=== PATIENT | female | born 1945 | race Caucasian/White ===

== ENCOUNTER 2022-02-28 08:11 | Day surgery (SDC) | payer BC ==
[2022-02-21 11:05] VITALS: BMI 29.6
[~2022-02-28 08:11] MED LIST: VANCOMYCIN 1,000 MG VIAL (RESTRICTED TO ID ONLY) IVPB ONE
[2022-02-28] MEDS ORDERED: CELECOXIB 200 MG CAPSULE PO ONE ×2 (09:51→10:00)
[2022-02-28] MEDS ORDERED: TRANEXAMIC ACID 1000 MG/10 ML VIAL IVPUSH ONE (10:00)
[2022-02-28] MEDS ORDERED: CEFAZOLIN 2 GM in DEXTROSE 5%-WATER - 50 ML IVPB ONE (10:00)
[2022-02-28] MEDS ORDERED: ceFAZolin SODIUM 1 GM VIAL ONE ×2 (10:27→19:09)
[2022-02-28] MEDS ORDERED: VANCOMYCIN 1,000 MG VIAL (RESTRICTED TO ID ONLY) ONE (10:27)
[2022-02-28] MEDS ORDERED: MIDAZOLAM HCL 2 MG/2 ML SINGLE DOSE VIAL ONE (10:52)
[2022-02-28] MEDS ORDERED: ROPIVACAINE HCL 0.5% 30ML VIAL ONE (10:53)
[2022-02-28] MEDS ORDERED: VANCOMYCIN 1,000 MG VIAL (RESTRICTED TO ID ONLY) IVPB ONE (12:50)
[2022-02-28] MEDS ORDERED: ONDANSETRON 4 MG/2 ML VIAL IVPUSH PRN ×2 (13:18→13:23)
[2022-02-28] MEDS ORDERED: MAG HYDROX/AL HYDROX/SIMETH 30 ML UNIT-DOSE CUP PO PRN (13:18)
[2022-02-28] MEDS ORDERED: LACTATED RINGERS SOLUTION 1,000 ML IV SCH (13:30)
[2022-02-28] MEDS ORDERED: oxyCODONE HCL 5 MG TABLET PO PRN (13:36)
[2022-02-28] MEDS ORDERED: ACETAMINOPHEN 1000 MG/100 ML BAG IVPB ONE (14:00)
[2022-02-28] MEDS: INSULIN SLIDING SCALE (NOVOLOG) 1 VIAL SQ SCH ×2 (19:07→22:44)
[2022-02-28] MEDS ORDERED: DEXTROSE 5%-WATER - 50 ML IVPB ONE (19:09)
[2022-02-28] MEDS: CEFAZOLIN 2 GM in DEXTROSE 5%-WATER - 50 ML IVPB SCH (19:13)
[2022-02-28] MEDS: oxyCODONE HCL 5 MG TABLET PO PRN (20:05)
[2022-02-28] MEDS: ATORVASTATIN CA 20 MG TABLET (FP) PO SCH (22:32)
[2022-02-28] MEDS: SENNOSIDES/DOCUSATE COMBO (SENNA PLUS) TABLET (UD) PO SCH (22:32)
[2022-02-28] MEDS ORDERED: SODIUM CHLORIDE 500 ML IV STA (22:47)
[2022-03-01] MEDS: CEFAZOLIN 2 GM in DEXTROSE 5%-WATER - 50 ML IVPB SCH (02:13)
[2022-03-01] MEDS: oxyCODONE HCL 5 MG TABLET PO PRN (05:14)
[2022-03-01] MEDS: LEVOTHYROXINE NA 100 MCG TABLET (FP) PO SCH (06:02)
[2022-03-01] MEDS: INSULIN SLIDING SCALE (NOVOLOG) 1 VIAL SQ SCH ×4 (06:02→23:23)
[2022-03-01 08:08] LABS: INR 1.04 (0.83-1.09)
[2022-03-01 08:16] LABS: ALBUMIN 2.8 g/dl (3.4-5.0); BILIRUBIN,TOTAL 0.5 mg/dl (0.2-1); CALCIUM 8.8 mg/dl (8.5-10); CREATININE 1.3 mg/dl (0.55-1.3); TOT PROT 5.9 g/dl (6.4-8.2)
[2022-03-01 08:19] LABS: HEMATOCRIT 22.7 % (32.4-45.2); HEMOGLOBIN 7.2 G/dL (10.7-15.3); MCH 25.4 pg (25.7-33.7); MCHC 31.8 g/dl (32.0-36.0); MEAN PLT VOLUME 7.6 fl (7.5-11.1); PLATELET COUNT 461.9 10^3/uL (134-434); RBC 2.84 10^6/uL (3.60-5.2)
[2022-03-01] MEDS ORDERED: SODIUM POLYSTYRENE SULFONATE 15 GM/60 ML BOTTLE PO ONE (08:45)
[2022-03-01] MEDS: metFORMIN HCL 500 MG TABLET (FP) PO SCH (08:45)
[2022-03-01] MEDS: amLODIPine BESYLATE 5 MG TABLET (FP) PO SCH (09:14)
[2022-03-01] MEDS: MULTIVITAMINS (DAILY MVI) TABLET (FP) PO SCH (09:15)
[2022-03-01] MEDS: CLOPIDOGREL BISULFATE 75 MG TABLET (FP) PO SCH (09:15)
[2022-03-01] MEDS: PANTOPRAZOLE 40 MG TABLET PO SCH (09:15)
[2022-03-01] MEDS: SENNOSIDES/DOCUSATE COMBO (SENNA PLUS) TABLET (UD) PO SCH ×2 (09:15→23:23)
[2022-03-01] MEDS: ATENOLOL 25 MG TABLET (FP) PO SCH (09:15)
[2022-03-01] MEDS ORDERED: PATIENT'S OWN MEDICATION (NON-FORMULARY) (Linaclotide [Linzess] 145 MCG Capsule) PO SCH (10:00)
[2022-03-01] MEDS ORDERED: VALSARTAN 160 MG TABLET PO SCH (10:00)
[2022-03-01] MEDS ORDERED: PATIENT'S OWN MEDICATION (NON-FORMULARY) (Metformin Hcl [Metformin Er Osmotic] 500 MG Tab. PO SCH (10:00)
[2022-03-01] MEDS ORDERED: SODIUM CHLORIDE 0.45% 1,000 ML IV SCH (16:00)
[2022-03-01 17:20] LABS: CALCIUM 8.5 mg/dl (8.5-10); CREATININE 1.2 mg/dl (0.55-1.3)
[2022-03-01 20:24] LABS: IRON SERUM 10 ug/dL (50-175); TOTAL IRON BINDING CAPACITY 354 ug/dL (250-450)
[2022-03-01 21:46] LABS: HEMATOCRIT 20.4 % (32.4-45.2); MCH 25.8 pg (25.7-33.7); MCHC 32.4 g/dl (32.0-36.0); MEAN CELL VOLUME 79.6 fl (80-96); MEAN PLT VOLUME 7.5 fl (7.5-11.1); PLATELET COUNT 413.3 10^3/uL (134-434); RBC 2.56 10^6/uL (3.60-5.2); WHITE BLOOD COUNT 13.4 10^3/uL (4.0-10.8)
[2022-03-01 21:47] LABS: HEMOGLOBIN 6.6 G/dL (10.7-15.3)
[2022-03-01] MEDS ORDERED: ACETAMINOPHEN 1000 MG/100 ML BAG IVPB ONE (22:32)
[2022-03-01] MEDS: ATORVASTATIN CA 20 MG TABLET (FP) PO SCH (23:23)
[2022-03-02 00:53] LABS: URINE APPEARANCE CLEAR; URINE BILIRUBIN NEGATIVE (NEGATIVE); URINE COLOR YELLOW; URINE GLUCOSE (UA) NEGATIVE (NEGATIVE); URINE KETONE NEGATIVE (NEGATIVE); URINE LEUK ESTERASE NEGATIVE (NEGATIVE); URINE NITRITE NEGATIVE (NEGATIVE); URINE PROTEIN NEGATIVE (NEGATIVE); URINE UROBILINOGEN 0.2 mg/dL (0.2-1.0)
[2022-03-02] MEDS: LEVOTHYROXINE NA 100 MCG TABLET (FP) PO SCH (06:48)
[2022-03-02] MEDS: INSULIN SLIDING SCALE (NOVOLOG) 1 VIAL SQ SCH ×4 (06:48→22:00)
[2022-03-02] MEDS: ATENOLOL 25 MG TABLET (FP) PO SCH (10:08)
[2022-03-02] MEDS: PANTOPRAZOLE 40 MG TABLET PO SCH (10:08)
[2022-03-02] MEDS: CLOPIDOGREL BISULFATE 75 MG TABLET (FP) PO SCH (10:09)
[2022-03-02] MEDS: amLODIPine BESYLATE 5 MG TABLET (FP) PO SCH (10:09)
[2022-03-02] MEDS: FUROSEMIDE 20 MG TABLET (FP) PO SCH (10:09)
[2022-03-02] MEDS: SENNOSIDES/DOCUSATE COMBO (SENNA PLUS) TABLET (UD) PO SCH ×2 (10:09→22:27)
[2022-03-02] MEDS: MULTIVITAMINS (DAILY MVI) TABLET (FP) PO SCH (10:11)
[2022-03-02] MEDS: metFORMIN HCL 500 MG TABLET (FP) PO SCH (10:20)
[2022-03-02 14:48] LABS: HEMATOCRIT 29.3 % (32.4-45.2); MCH 27.9 pg (25.7-33.7); MCHC 34.1 g/dl (32.0-36.0); MEAN CELL VOLUME 81.9 fl (80-96); MEAN PLT VOLUME 7.6 fl (7.5-11.1); PLATELET COUNT 378.5 10^3/uL (134-434); RBC 3.58 10^6/uL (3.60-5.2); RDW 18.1 % (11.6-15.6)
[2022-03-02 14:51] LABS: CALCIUM 8.6 mg/dl (8.5-10)
[2022-03-02] MEDS: ATORVASTATIN CA 20 MG TABLET (FP) PO SCH (22:27)
[2022-03-03] MEDS: ACETAMINOPHEN 325 MG TABLET (FP) PO PRN ×2 (00:42→18:41)
[2022-03-03] MEDS: LEVOTHYROXINE NA 100 MCG TABLET (FP) PO SCH (06:54)
[2022-03-03] MEDS: oxyCODONE HCL 5 MG TABLET PO PRN (06:54)
[2022-03-03] MEDS: INSULIN SLIDING SCALE (NOVOLOG) 1 VIAL SQ SCH ×3 (06:54→17:18)
[2022-03-03] MEDS: metFORMIN HCL 500 MG TABLET (FP) PO SCH (07:22)
[2022-03-03] MEDS: CLOPIDOGREL BISULFATE 75 MG TABLET (FP) PO SCH (10:17)
[2022-03-03] MEDS: SENNOSIDES/DOCUSATE COMBO (SENNA PLUS) TABLET (UD) PO SCH ×2 (10:17→21:47)
[2022-03-03] MEDS: FUROSEMIDE 20 MG TABLET (FP) PO SCH (10:17)
[2022-03-03] MEDS: PANTOPRAZOLE 40 MG TABLET PO SCH (10:17)
[2022-03-03] MEDS: MULTIVITAMINS (DAILY MVI) TABLET (FP) PO SCH (10:17)
[2022-03-03] MEDS: amLODIPine BESYLATE 5 MG TABLET (FP) PO SCH (10:18)
[2022-03-03] MEDS: ATENOLOL 25 MG TABLET (FP) PO SCH (10:18)
[2022-03-03 13:05] LABS: ALBUMIN 2.8 g/dl (3.4-5.0); BILIRUBIN,TOTAL 0.7 mg/dl (0.2-1); CALCIUM 8.8 mg/dl (8.5-10); CALCIUM 8.9 mg/dl (8.5-10); CREATININE 0.9 mg/dl (0.55-1.3); TOT PROT 6.5 g/dl (6.4-8.2)
[2022-03-03 13:16] LABS: HEMATOCRIT 34.8 % (32.4-45.2); HEMOGLOBIN 11.2 G/dL (10.7-15.3); MCH 26.4 pg (25.7-33.7); MCHC 32.3 g/dl (32.0-36.0); MEAN CELL VOLUME 81.9 fl (80-96); MEAN PLT VOLUME 7.9 fl (7.5-11.1); PLATELET COUNT 483.3 10^3/uL (134-434); RBC 4.25 10^6/uL (3.60-5.2); RDW 18.2 % (11.6-15.6); WHITE BLOOD COUNT 15.9 10^3/uL (4.0-10.8)
[2022-03-03 14:27] LABS: ADD RBC MORPHOLOGY YES; PLATELET ESTIMATE SLT INCREASE
[2022-03-03 14:28] LABS: ANISOCYTOSIS 2+
[2022-03-03] MEDS: ATORVASTATIN CA 20 MG TABLET (FP) PO SCH (21:47)
[2022-03-04] MEDS: LEVOTHYROXINE NA 100 MCG TABLET (FP) PO SCH (06:15)
[2022-03-04] MEDS: metFORMIN HCL 500 MG TABLET (FP) PO SCH (06:15)
[2022-03-04] MEDS: INSULIN SLIDING SCALE (NOVOLOG) 1 VIAL SQ SCH ×4 (06:35→21:32)
[2022-03-04 08:16] LABS: HEMATOCRIT 29.7 % (32.4-45.2); HEMOGLOBIN 9.8 G/dL (10.7-15.3); MCH 26.7 pg (25.7-33.7); MCHC 32.9 g/dl (32.0-36.0); MEAN CELL VOLUME 81.4 fl (80-96); MEAN PLT VOLUME 7.7 fl (7.5-11.1); PLATELET COUNT 437.8 10^3/uL (134-434); RBC 3.65 10^6/uL (3.60-5.2); RDW 18.3 % (11.6-15.6); WHITE BLOOD COUNT 14.2 10^3/uL (4.0-10.8)
[2022-03-04] MEDS: SENNOSIDES/DOCUSATE COMBO (SENNA PLUS) TABLET (UD) PO SCH ×2 (09:31→21:23)
[2022-03-04] MEDS: MULTIVITAMINS (DAILY MVI) TABLET (FP) PO SCH (09:31)
[2022-03-04] MEDS: CLOPIDOGREL BISULFATE 75 MG TABLET (FP) PO SCH (09:32)
[2022-03-04] MEDS: PANTOPRAZOLE 40 MG TABLET PO SCH (09:32)
[2022-03-04] MEDS: FUROSEMIDE 20 MG TABLET (FP) PO SCH (09:32)
[2022-03-04] MEDS: ATENOLOL 25 MG TABLET (FP) PO SCH (09:35)
[2022-03-04] MEDS: amLODIPine BESYLATE 5 MG TABLET (FP) PO SCH (09:35)
[2022-03-04] MEDS: ACETAMINOPHEN 325 MG TABLET (FP) PO PRN (10:02)
[2022-03-04 12:50] LABS: ANISOCYTOSIS 1+
[2022-03-04 12:51] LABS: PLATELET ESTIMATE SIGNIFICANT INCREASE
[2022-03-04] MEDS: ATORVASTATIN CA 20 MG TABLET (FP) PO SCH (21:23)
[2022-03-05] MEDS: ACETAMINOPHEN 325 MG TABLET (FP) PO PRN ×2 (05:55→16:44)
[2022-03-05] MEDS: metFORMIN HCL 500 MG TABLET (FP) PO SCH (06:01)
[2022-03-05] MEDS: INSULIN SLIDING SCALE (NOVOLOG) 1 VIAL SQ SCH ×4 (07:00→21:32)
[2022-03-05] MEDS: LEVOTHYROXINE NA 100 MCG TABLET (FP) PO SCH (08:51)
[2022-03-05] MEDS: FUROSEMIDE 20 MG TABLET (FP) PO SCH (09:01)
[2022-03-05] MEDS: CLOPIDOGREL BISULFATE 75 MG TABLET (FP) PO SCH (09:01)
[2022-03-05] MEDS: MULTIVITAMINS (DAILY MVI) TABLET (FP) PO SCH (09:01)
[2022-03-05] MEDS: SENNOSIDES/DOCUSATE COMBO (SENNA PLUS) TABLET (UD) PO SCH ×2 (09:01→21:22)
[2022-03-05] MEDS: PANTOPRAZOLE 40 MG TABLET PO SCH (09:01)
[2022-03-05] MEDS: ATENOLOL 25 MG TABLET (FP) PO SCH (09:02)
[2022-03-05] MEDS: VALSARTAN 160 MG TABLET PO SCH (09:03)
[2022-03-05 09:22] LABS: HEMATOCRIT 28.5 % (32.4-45.2); HEMOGLOBIN 9.5 G/dL (10.7-15.3); MCH 27.6 pg (25.7-33.7); MCHC 33.3 g/dl (32.0-36.0); MEAN PLT VOLUME 7.8 fl (7.5-11.1); PLATELET COUNT 471.7 10^3/uL (134-434); RBC 3.43 10^6/uL (3.60-5.2); RDW 18.8 % (11.6-15.6); WHITE BLOOD COUNT 10.9 10^3/uL (4.0-10.8)
[2022-03-05] MEDS: amLODIPine BESYLATE 5 MG TABLET (FP) PO SCH (12:00)
[2022-03-05 14:21] LABS: PLATELET ESTIMATE SLT INCREASE
[2022-03-05] MEDS: ATORVASTATIN CA 20 MG TABLET (FP) PO SCH (21:23)
[2022-03-06] MEDS: metFORMIN HCL 500 MG TABLET (FP) PO SCH (06:30)
[2022-03-06] MEDS: LEVOTHYROXINE NA 100 MCG TABLET (FP) PO SCH (06:30)
[2022-03-06] MEDS: INSULIN SLIDING SCALE (NOVOLOG) 1 VIAL SQ SCH ×5 (06:35→21:33)
[2022-03-06] MEDS: ACETAMINOPHEN 325 MG TABLET (FP) PO PRN ×2 (06:54→17:38)
[2022-03-06] MEDS: VALSARTAN 160 MG TABLET PO SCH (09:33)
[2022-03-06] MEDS: FUROSEMIDE 20 MG TABLET (FP) PO SCH (09:33)
[2022-03-06] MEDS: PANTOPRAZOLE 40 MG TABLET PO SCH (09:33)
[2022-03-06] MEDS: ATENOLOL 25 MG TABLET (FP) PO SCH (09:33)
[2022-03-06] MEDS: CLOPIDOGREL BISULFATE 75 MG TABLET (FP) PO SCH (09:33)
[2022-03-06] MEDS: SENNOSIDES/DOCUSATE COMBO (SENNA PLUS) TABLET (UD) PO SCH ×2 (09:33→21:32)
[2022-03-06] MEDS: MULTIVITAMINS (DAILY MVI) TABLET (FP) PO SCH (09:33)
[2022-03-06] MEDS: ATORVASTATIN CA 20 MG TABLET (FP) PO SCH (21:32)
[2022-03-07] MEDS: LEVOTHYROXINE NA 100 MCG TABLET (FP) PO SCH (06:07)
[2022-03-07] MEDS: metFORMIN HCL 500 MG TABLET (FP) PO SCH (06:07)
[2022-03-07] MEDS: INSULIN SLIDING SCALE (NOVOLOG) 1 VIAL SQ SCH ×2 (06:08→13:30)
[2022-03-07] MEDS: VALSARTAN 160 MG TABLET PO SCH (09:48)
[2022-03-07] MEDS: SENNOSIDES/DOCUSATE COMBO (SENNA PLUS) TABLET (UD) PO SCH (09:50)
[2022-03-07] MEDS: FUROSEMIDE 20 MG TABLET (FP) PO SCH (09:51)
[2022-03-07] MEDS: PANTOPRAZOLE 40 MG TABLET PO SCH (09:51)
[2022-03-07] MEDS: CLOPIDOGREL BISULFATE 75 MG TABLET (FP) PO SCH (09:51)
[2022-03-07] MEDS: MULTIVITAMINS (DAILY MVI) TABLET (FP) PO SCH (09:51)
[2022-03-07] MEDS: ATENOLOL 25 MG TABLET (FP) PO SCH (09:52)
[2022-03-07] MEDS: ACETAMINOPHEN 325 MG TABLET (FP) PO PRN (09:52)
[2022-03-07 14:03] VITALS: BP 101/55; PULSE 74; TEMP 97.8
[2022-03-08] MEDS ORDERED: VALSARTAN 80 MG TABLET PO SCH (10:00)
== END 2022-03-07 17:51 | disposition home health service (06) ==
LOC: FASUSAT 08:11 → FM/S 16:33 → FASUSAT 03-07 17:51
PROVIDERS: ATTEND Orthopaedic Surgery
PROC: 8E0YXBZ Computer Assisted Procedure of Lower Extremity (ICD-10-PCS; 2022-02-28)
PROC: 8E0Y0CZ Robotic Assisted Procedure of Lower Extremity, Open Approach (ICD-10-PCS; 2022-02-28)
PROC: 30233N1 Transfusion of Nonautologous Red Blood Cells into Peripheral Vein, Percutaneous Approach (ICD-10-PCS; 2022-02-28)
PROC: 0SRB0J9 Replacement of Left Hip Joint with Synthetic Substitute, Cemented, Open Approach (ICD-10-PCS; principal; 2022-02-28 11:59)
DX: M16.12 Unilateral primary osteoarthritis, left hip (principal); I10 Essential (primary) hypertension; I25.10 Atherosclerotic heart disease of native coronary artery without angina pectoris; D64.9 Anemia, unspecified; E78.5 Hyperlipidemia, unspecified; M79.604 Pain in right leg; E87.5 Hyperkalemia; R50.9 Fever, unspecified; E11.9 Type 2 diabetes mellitus without complications; J44.9 Chronic obstructive pulmonary disease, unspecified; Z90.710 Acquired absence of both cervix and uterus; Z87.891 Personal history of nicotine dependence; Z79.84 Long term (current) use of oral hypoglycemic drugs
CPT/HCPCS: 20985; 27130; 36430; C1776; S2900; 36415; 71045-TC-FY; 73502-TC-LT-FY; 80048; 80053; 81003; 82272; 82570; 82728; 82962; 83540; 83550; 83605; 84156; 85025; 85027; 85610; 86850; 86900; 86901; 86922; 87040; 87086; 88305-TC; 88311-TC; 93971-TC; 94760; 97010-GP; 97110-GP; 97116-GP; 97162-GP; C9803-CS; P9058; U0003; U0005